=== PATIENT | male | born 1965 | race African-American/Black ===

== ENCOUNTER 2016-07-17 20:21 | Inpatient (IN) | payer BC ==
[~2016-07-17] VITALS: Ht 172.7 cm; Wt 75.5 kg
[~2016-07-17 20:21] MED LIST: IBUP-1542 PO
[2016-07-17] MEDS ORDERED: ONDANSETRON 4 MG INJ IV STA (23:17)
[2016-07-17] MEDS ORDERED: morphine 4 MG/ML VIAL IV STA (23:17)
[2016-07-18 00:03] LABS: ADD UMIC NO; URINE BILIRUBIN (Dip) NEGATIVE (NEGATIVE); URINE BLOOD (Dip) NEGATIVE (NEGATIVE); URINE COLOR LT. YELLOW (YELLOW); URINE GLUCOSE (Dip) NEGATIVE (NEGATIVE); URINE KETONES (Dip) NEGATIVE (NEGATIVE); URINE LEUKOCYTE ESTERASE (Dip) NEGATIVE (NEGATIVE); URINE NITRITE (Dip) NEGATIVE (NEGATIVE); URINE TOTAL PROTEIN (Dip) NEGATIVE (NEGATIVE); URINE UROBILINOGEN (Dip) 1.0 E.U./dL (0.1-1.0)
[2016-07-18 00:11] LABS: ALBUMIN 4.1 g/dl (3.3-4.9)
[2016-07-18 00:12] LABS: POTASSIUM 4.1 mmol/L (3.5-5.1)
[2016-07-18 00:14] LABS: ALBUMIN/GLOBULIN RATIO 1.24; BILIRUBIN,INDIRECT 0.4 mg/dl (0-1.1); BILIRUBIN,TOTAL 0.4 mg/dl (0.2-1.3); CREATININE 0.98 mg/dl (0.61-1.24); TOTAL PROTEIN 7.4 g/dl (6.1-8.1)
[2016-07-18 00:15] LABS: CALCIUM 9.3 mg/dl (8.4-10.2)
[2016-07-18 00:23] LABS: BASOPHILS % 0.4 % (0.0-2.0); CONDITION 1; EOSINOPHILS % 0.4 % (0.0-7.0); HEMATOCRIT 37.9 % (42.0-52.0); HEMOGLOBIN 12.7 g/dl (14.0-18.0); LYMPHOCYTES # 1.9 10^3/ul (0.8-2.9); LYMPHOCYTES % 17.4 % (15.0-51.0); MEAN CORPUSCULAR HEMOGLOBIN 29.3 pg (29.0-33.0); MEAN CORPUSCULAR HGB CONC 33.6 g/dl (32.0-37.0); MEAN CORPUSCULAR VOLUME 87.3 fl (82.0-101.0); MEAN PLATELET VOLUME 7.6 fl (7.4-10.4); MONOCYTE # 1.2 10^3/ul (0.3-0.9); MONOCYTES % 10.8 % (0.0-11.0); NEUTROPHIL # 7.9 10^3/ul (1.6-7.5); PLATELET COUNT 363 10^3/UL (140-440); RED BLOOD COUNT 4.34 10^6/ul (4.70-6.10); RED CELL DISTRIBUTION WIDTH 13.9 % (11.5-14.5); UNCORRECTED WBC 11.1 10^3/ul (4.8-10.8); WHITE BLOOD COUNT 11.1 10^3/ul (4.8-10.8)
--- NOTE | 2016-07-18 00:33 | ERD ---
ER Documentation Chief Complaint Date/Time DATE: 07/18/16 TIME: 00:32 Chief Complaint RLQ abd pain x 1 week HPI This is a 50-year-old male presents to the ER with right lower quadrant pain for the last week. Patient states that right lower quadrant pain radiates to his right flank and it has been severe and constant. Patient denies any fevers or chills. He denies any nausea vomiting or diarrhea. Patient did not travel out of the country. ROS 12 point review of systems was done, all negative except per HPI. Medications Home Meds Active Scripts Ibuprofen* (Motrin*) 600 Mg Tab, 600 MG PO Q8 Y for PAIN AND/OR INFLAMMATION, # 30 TAB Prov:AQUILINO DEUTSCH MD 03/17/16 Allergies Allergies: Coded Allergies: No Known Allergy (Unverified , 03/17/16) PMhx/Soc History of Surgery: No Anesthesia Reaction: No Hx Neurological Disorder: No Hx Respiratory Disorders: No Hx Cardiac Disorders: No Hx Psychiatric Problems: No Hx Miscellaneous Medical Probl: No Hx Alcohol Use: Yes Hx Substance Use: No Hx Tobacco Use: No Smoking Status: Light tobacco smoker Physical Exam Vitals Vital Signs Date Time Temp Pulse Resp B/P Pulse Ox O2 Delivery O2 Flow Rate FiO2 07/17/16 20:32 97.8 85 20 139/65 100 Physical Exam GENERAL: The patient is well developed and appropriate for usual state of health , in no apparent distress. HEENT: Atraumatic. CHEST: Clear to auscultation bilaterally. There are no rales, wheezes or rhonchi. HEART: Regular rate and rhythm. No murmurs, clicks, rubs or gallops. ABDOMEN: Soft and nondistended. Good bowel sounds. No rebound or guarding. No gross peritonitis. No gross organomegaly or masses. No Christianson sign + McBurney point tenderness. BACK: No midline or flank tenderness. EXTREMITIES: Full range of motion. Grossly neurovascularly intact. NEURO: Alert and oriented. Result Diagram: 07/17/16 2342 07/17/16 2342 Results 24 hrs Laboratory Tests Test 07/17/16 23:40 07/17/16 23:42 Urine Bilirubin NEGATIVE Urine Clarity CLEAR Urine Color LT. YELLOW Urine Glucose NEGATIVE% Urine Hemoglobin NEGATIVE Urine Ketones NEGATIVE Urine Leukocyte Esterase NEGATIVE Urine Nitrite NEGATIVE Urine Specific [place] 1.015 Urine Total Protein NEGATIVE Urine Urobilinogen 1.0 E.U./dL Urine pH 7.5 Alanine Aminotransferase (ALT/SGPT) 27IU/L Albumin 4.1g/dl Albumin/Globulin Ratio 1.24 Alkaline Phosphatase 77IU/L Anion Gap 19 Aspartate Amino Transf (AST/SGOT) 15IU/L Basophils # 0.010^3/ul Basophils % 0.4% Blood Urea Nitrogen 19mg/dl Calcium Level 9.3mg/dl Carbon Dioxide Level 27mmol/L Chloride Level 102mmol/L Creatinine 0.98mg/dl Direct Bilirubin 0.00mg/dl Eosinophils # 0.010^3/ul Eosinophils % 0.4% Globulin 3.30g/dl Glucose Level 102mg/dl Hematocrit 37.9% Hemoglobin 12.7g/dl Indirect Bilirubin 0.4mg/dl Lipase 52U/L Lymphocytes # 1.910^3/ul Lymphocytes % 17.4% Mean Corpuscular Hemoglobin 29.3pg Mean Corpuscular Hemoglobin Concent 33.6g/dl Mean Corpuscular Volume 87.3fl Mean Platelet Volume 7.6fl Monocytes # 1.210^3/ul Monocytes % 10.8% Neutrophils # 7.910^3/ul Neutrophils % 71.0% Nucleated Red Blood Cells # 0.010^3/ul Nucleated Red Blood Cells % 0.0/100WBC Platelet Count 88407^3/UL Potassium Level 4.1mmol/L Red Blood Count 4.3410^6/ul Red Cell Distribution Width 13.9% Sodium Level 144mmol/L Total Bilirubin 0.4mg/dl Total Protein 7.4g/dl White Blood Count 11.110^3/ul Current Medications Medications (Trade) Dose Ordered Sig/Xenia Route PRN Reason Start Time Stop Time Status Last Admin Dose Admin Morphine Sulfate (morphine) 6 mg ONCE STAT IV 07/17/16 23:17 07/17/16 23:19 DC 07/17/16 23:40 Ondansetron HCl (Zofran Inj) 4 mg ONCE STAT IV 07/17/16 23:17 07/17/16 23:19 DC 07/17/16 23:40 Procedures/MDM This is a 50-year-old male presents to the ER with right lower quadrant pain. Patient does have a perforated appendix. Patient will be admitted for further management and care. Departure Diagnosis: Primary Impression: Appendicitis Condition: Stable QUIN HAWKINS Jul 18, 2016 00:33
--- NOTE | 2016-07-18 00:55 | RADRPT ---
PROCEDURE: CT Abdomen and pelvis without contrast. CLINICAL INDICATION: Abdominal pain. TECHNIQUE: CT scan of the abdomen and pelvis was performed on the [employer] 6 4 slice VCT scanner. Contiguous axial images using 2.5 mm slice thickness were obtained from the jane ng bases to the ischial tuberosities without intravenous contrast. Coronal and sagittal reformatted images were also obtained. Images were reviewed on the PACS workstation. Exam CTD/vol = 6.80 mGy. Total exam DLP = 414.71 mGy-cm. COMPARISON: None. FINDINGS: Evaluation of the lung bases demonstrates no pleural or parenchymal disease. Abdomen: The liver is normal in size. There is no focal mass or dilatation of the biliary tree. T he gallbladder is not distended. The spleen, pancreas and bilateral adrenal glands are within susan l limits. Bilateral kidneys are normal in size with no contour deforming mass identified. There is no radiopaque renal or ureteral calculus identified. There is no hydronephrosis or hydroureter. T here is no retroperitoneal adenopathy. The abdominal aorta is of normal caliber with scattered athe rosclerotic calcifications. There are phlegmonous changes with stranding and increased soft tissue inferior to the cecum. The a ppendix is not visualized. There is no bowel obstruction or free air. There is no diverticulosis or diverticulitis. There are small mesenteric lymph nodes. There is no ascites. Pelvis: The bladder is unremarkable. The prostate and seminal vesicles are within normal limits. There is no significant pelvic adenopathy or free fluid. Evaluation of the osseous structures demonstrates no suspicious lytic or blastic lesion. IMPRESSION: Phlegmonous changes with stranding and increased soft tissue inferior to the cecum suspicious for pe rforated appendicitis. Mild vascular calcifications reflective of atherosclerosis. A call report was made to Chanel Siu at 12:54 a.m. .Mike Gonzales MD, MD Date Time Electronically viewed and signed by .Mike Gonzales MD, MD on 07/18/2016 00:54 .T/
[2016-07-18] MEDS ORDERED: PIPER-TAZO 3.375 GM IV (PMX) 100 ML IVPB ONE (01:00)
[2016-07-18] MEDS ORDERED: SOD CHLORIDE 0.9% 1,000 ML IV ONE (01:00)
[2016-07-18 01:08] LABS: INR 0.98
[2016-07-18 01:09] LABS: PARTIAL THROMBOPLASTIN TIME 28.7 Sec (25.0-35.0)
[2016-07-18] MEDS ORDERED: SOD CHLORIDE 0.9% 1,000 ML IV SCH (01:21)
--- NOTE | 2016-07-18 01:24 | EN ---
Date/Time of Note Date/Time of Note DATE: 07/18/16 TIME: 01:23 ER Progress Note I was called to evaluate a patient in fast track. This patient is a 50-year- old male who presents with 1 week of abdominal pain. This patient had a CAT scan done which does show ruptured appendicitis. I have admitted this patient to the [facility] floor as he has no signs of sepsis. The patient will be admitted under the care of Dr. Whipple. I have spoken to on-call general surgeon, Dr. Ramachandran who is in agreement with the plan of care for admission and IV antibiotics at this time. EARLINE FREEDMAN DO Jul 18, 2016 01:24
[2016-07-18] MEDS ORDERED: ONDANSETRON 4 MG INJ IV PRN ×2 (01:30→02:30)
[2016-07-18] MEDS ORDERED: ACETAMINOPHEN 325 MG TAB PO PRN ×2 (01:30→02:30)
--- NOTE | 2016-07-18 02:06 | RADRPT ---
PROCEDURE: XR Chest. CLINICAL INDICATION: Abdominal pain TECHNIQUE: Portable single view of the chest COMPARISON: None. FINDINGS: The cardiomediastinal silhouette appears within normal limits. The lungs are clear and no pleural e ffusion or significant edema is seen. No bony abnormality is seen. IMPRESSION: No definite acute pulmonary disease. RPTAT: HLBE Nora Peters Physician Date Time Electronically viewed and signed by Nora Peters Physician on 07/18/2016 02:06 LE/
--- NOTE | 2016-07-18 02:09 | HP ---
Date/Time of Note Date/Time of Note DATE: 07/18/16 TIME: 02:04 Assessment/Plan VTE Prophylaxis VTE Prophylaxis Intervention: SCD's Assessment/Plan Assessment/Plan 50 yo M with 1. Acute appendicitis with Ct concerning for perforation admit / surgical consult with Dr Ramachandran / abx/ pain control/ antiemetics/ antipyretics/ supportive care Prophylaxis: scds/ambulation Further evaluation and treatment will be based on clinical course Full discussion with care team done. All questions Answered Please also see orders. Total time spent on this evaluation >35mins HPI/ROS Admit Date/Time Admit Date/Time 07/18/16 Hx of Present Illness PRESENTING COMPLAINT: abd pain HISTORY OF PRESENTING COMPLAINT: 50 yo M with no sig PMH who presents with abd pain in RLQ described as sharp and radiating to back and suprapubic area, with nausea but no vomiting, no fever. No CP, SOB dysuria or hematuria. no hx of similar. relived by ER meds. ROS 12 point review if systems was done and pertinent findings are as noted. PMH/Family/Social Past Medical History Medical History: no pertinent history Past Surgical History Past Surgical Hx: no surgical history Family History Significant Family History: no pertinent family hx Social History Alcohol Use: occasionally Smoking Status: Never smoker Drug Use: none Exam/Review of Systems Vital Signs Vitals Vital Signs Date Time Temp Pulse Resp B/P Pulse Ox O2 Delivery O2 Flow Rate FiO2 07/18/16 01:26 99.2 84 14 131/70 98 Room Air Intake and Output 07/17/16 07/17/16 07/18/16 15:00 23:00 07:00 Intake Total 100 ml Balance 100 ml Exam Constitutional: alert, oriented Psych: nl mood/affect Head: atraumatic, normocephalic Eyes: PERRL, No icteric Neck: non-tender, supple Respiratory: clear to auscultation, normal air movement Cardiovascular: regular rate and rhythm Gastrointestinal: bowel sounds, tender (RLQ), No ascites Genitourinary - Male: other (deffered) Musculoskeletal: nl extremities to inspection Extremities: No edema Neurological: nl mental status, nl speech, nl strength Labs Result Diagram: 07/17/16 2342 07/17/16 2342 Medications Medications Current Medications Sodium Chloride (NS) 1,000 ml @ 80 mls/hr [id number] IV ; Start 07/18/16 at 01:21 ; Stop 07/18/16 at 13:50 Procedures Procedures Laboratory Tests Test 07/17/16 23:40 07/17/16 23:42 Urine Bilirubin NEGATIVE Urine Clarity CLEAR Urine Color LT. YELLOW Urine Glucose NEGATIVE% Urine Hemoglobin NEGATIVE Urine Ketones NEGATIVE Urine Leukocyte Esterase NEGATIVE Urine Nitrite NEGATIVE Urine Specific [place] 1.015 Urine Total Protein NEGATIVE Urine Urobilinogen 1.0 E.U./dL Urine pH 7.5 Activated Partial Thromboplast Time 28.7Sec Alanine Aminotransferase (ALT/SGPT) 27IU/L Albumin 4.1g/dl Albumin/Globulin Ratio 1.24 Alkaline Phosphatase 77IU/L Anion Gap 19 Aspartate Amino Transf (AST/SGOT) 15IU/L Basophils # 0.010^3/ul Basophils % 0.4% Blood Urea Nitrogen 19mg/dl Calcium Level 9.3mg/dl Carbon Dioxide Level 27mmol/L Chloride Level 102mmol/L Creatinine 0.98mg/dl Direct Bilirubin 0.00mg/dl Eosinophils # 0.010^3/ul Eosinophils % 0.4% Globulin 3.30g/dl Glucose Level 102mg/dl Hematocrit 37.9% Hemoglobin 12.7g/dl INR International Normalized Ratio 0.98 Indirect Bilirubin 0.4mg/dl Lipase 52U/L Lymphocytes # 1.910^3/ul Lymphocytes % 17.4% Mean Corpuscular Hemoglobin 29.3pg Mean Corpuscular Hemoglobin Concent 33.6g/dl Mean Corpuscular Volume 87.3fl Mean Platelet Volume 7.6fl Monocytes # 1.210^3/ul Monocytes % 10.8% Neutrophils # 7.910^3/ul Neutrophils % 71.0% Nucleated Red Blood Cells # 0.010^3/ul Nucleated Red Blood Cells % 0.0/100WBC Platelet Count 71026^3/UL Potassium Level 4.1mmol/L Prothrombin Time 13.0Sec Prothrombin Time Ratio 1.0 Red Blood Count 4.3410^6/ul Red Cell Distribution Width 13.9% Sodium Level 144mmol/L Total Bilirubin 0.4mg/dl Total Protein 7.4g/dl White Blood Count 11.110^3/ul ER INTERVENTIONS Medications (Trade) Dose Ordered Sig/Xenia Route PRN Reason Start Time Stop Time Status Last Admin Dose Admin Morphine Sulfate (morphine) 6 mg ONCE STAT IV 07/17/16 23:17 07/17/16 23:19 DC 07/17/16 23:40 6 MG Ondansetron HCl 4 mg 4 mg ONCE STAT IV 07/17/16 23:17 07/17/16 23:19 DC 07/17/16 23:40 4 MG Sodium Chloride 1,000 ml @ 1,000 mls/hr Q1H ONCE IV 07/18/16 01:00 07/18/16 01:59 DC 07/18/16 01:14 1,000 MLS/HR Piperacillin Sod/ Tazobactam Sod 100 ml @ 200 mls/hr ONCE ONCE IVPB 07/18/16 01:00 07/18/16 01:29 DC 07/18/16 01:14 200 MLS/HR Sodium Chloride (NS) 1,000 ml @ 80 mls/hr [id number] IV 07/18/16 01:21 07/18/16 13:50 Ondansetron HCl (Zofran Inj) 4 mg BRIDGE ORDER PRN IV NAUSEA AND/OR VOMITING 07/18/16 01:30 07/19/16 01:29 Acetaminophen (Tylenol Tab) 650 mg ER BRIDGE PRN PO MILD PAIN/FEVER 07/18/16 01:30 07/19/16 01:29 PROCEDURE: CT Abdomen and pelvis without contrast. 07/17/16 CLINICAL INDICATION: Abdominal pain. TECHNIQUE: CT scan of the abdomen and pelvis was performed on the [employer] 64 slice VCT scanner. Contiguous axial images using 2.5 mm slice thickness were obtained from the lung bases to the ischial tuberosities without intravenous contrast. Coronal and sagittal reformatted images were also obtained. Images were reviewed on the PACS workstation. Exam CTD/vol = 6.80 mGy. Total exam DLP = 414.71 mGy-cm. COMPARISON: None. FINDINGS: Evaluation of the lung bases demonstrates no pleural or parenchymal disease. Abdomen: The liver is normal in size. There is no focal mass or dilatation of the biliary tree. The gallbladder is not distended. The spleen, pancreas and bilateral adrenal glands are within normal limits. Bilateral kidneys are normal in size with no contour deforming mass identified. There is no radiopaque renal or ureteral calculus identified. There is no hydronephrosis or hydroureter. There is no retroperitoneal adenopathy. The abdominal aorta is of normal caliber with scattered atherosclerotic calcifications. There are phlegmonous changes with stranding and increased soft tissue inferior to the cecum. The appendix is not visualized. There is no bowel obstruction or free air. There is no diverticulosis or diverticulitis. There are small mesenteric lymph nodes. There is no ascites. Pelvis: The bladder is unremarkable. The prostate and seminal vesicles are within normal limits. There is no significant pelvic adenopathy or free fluid. Evaluation of the osseous structures demonstrates no suspicious lytic or blastic lesion. IMPRESSION: Phlegmonous changes with stranding and increased soft tissue inferior to the cecum suspicious for perforated appendicitis. Mild vascular calcifications reflective of atherosclerosis. SUMANTH AMAYA Jul 18, 2016 02:09
[2016-07-18 03:22] VITALS: TEMP 99
[2016-07-18] MEDS: SOD CHLORIDE 0.9% 1,000 ML IV SCH ×3 (04:19→16:06)
[2016-07-18 04:30] VITALS: BP 130/78; PULSE 63; RESP 18
[2016-07-18 04:40] VITALS: Ht 172.7 cm; Wt 75.5 kg
[2016-07-18 06:04] LABS: BASOPHILS % 0.4 % (0.0-2.0); EOSINOPHILS # 0.1 10^3/ul (0.0-0.5); EOSINOPHILS % 0.6 % (0.0-7.0); HEMOGLOBIN 11.4 g/dl (14.0-18.0); LYMPHOCYTES # 1.6 10^3/ul (0.8-2.9); LYMPHOCYTES % 18.2 % (15.0-51.0); MEAN CORPUSCULAR HEMOGLOBIN 29.4 pg (29.0-33.0); MEAN CORPUSCULAR HGB CONC 33.4 g/dl (32.0-37.0); MEAN CORPUSCULAR VOLUME 88.2 fl (82.0-101.0); MEAN PLATELET VOLUME 7.4 fl (7.4-10.4); MONOCYTE # 1.1 10^3/ul (0.3-0.9); MONOCYTES % 11.7 % (0.0-11.0); NEUTROPHIL # 6.2 10^3/ul (1.6-7.5); NEUTROPHILS % 69.1 % (39.0-77.0); PLATELET COUNT 305 10^3/UL (140-440); RED BLOOD COUNT 3.85 10^6/ul (4.70-6.10); RED CELL DISTRIBUTION WIDTH 13.8 % (11.5-14.5)
[2016-07-18 06:21] LABS: CALCIUM 8.6 mg/dl (8.4-10.2); CREATININE 0.93 mg/dl (0.61-1.24)
[2016-07-18 06:28] LABS: CONDITION 1
[2016-07-18] MEDS: PIPER-TAZO 3.375 GM IV (PMX) 100 ML IVPB SCH ×3 (06:29→22:12)
[2016-07-18 07:56] VITALS: BP 105/63; PULSE 59; RESP 16
[2016-07-18] MEDS: FAMOTIDINE 20 MG TAB PO SCH ×2 (08:42→20:41)
[2016-07-18] MEDS: DOCUSATE SODIUM 100 MG CAP PO SCH ×2 (08:43→20:41)
--- NOTE | 2016-07-18 18:03 | CONS ---
Date/Time of Note Date/Time of Note DATE: 07/18/16 TIME: 17:57 Assessment/Plan Assessment/Plan Chief Complaint/Hosp Course 1. Abdominal pain with leukocytosis and CT diagnosis of appendicitis with phlegmon -Nothing by mouth -IV fluids -IV antibiotics -No surgical intervention at this time. Plan is to continue antibiotics and discharged patient to follow-up as outpatient for elective upper scopic appendectomy in the future. 2. Anemia without evidence of acute bleeding -Will need eventual GI workup 3. Smoker, pack per day -Highly encouraged to reduce or stop smoking to improve his overall health status Thank you very much for consulting me in this patient's care, Problems: Consultation Date/Type/Reason Admit Date/Time 07/18/16 Date of Consultation: Jul 18, 2016 Type of Consultation: Gen. surgical Reason for Consultation Abdominal pain Perforated appendicitis with phlegmon Leukocytosis Anemia Referring Provider: EARLINE FREEDMAN DO Hx of Present Illness Alvin Arauz is a 50-year-old male who presents with 2 weeks of right lower quadrant abdominal pain that got worse associated with nausea but no vomiting. Pain radiates to the back and suprapubic region. No previous history of this. No dysuria. Had diarrhea last week. No fevers or chills. No chest pain or shortness of breath. No visual or neurologic changes. No trauma or sick contacts. In the emergency room his found to have leukocytosis and CT diagnosis of appendicitis with phlegmon suggestive of perforation. He is admitted and placed on antibiotics. Surgical consult is obtained further evaluation and treatment. 12 point review of systems negative unless address in history of present illness Psychological: nl mood/affect Past Medical History Anemia Abdominal pain 2 weeks Leukocytosis Perforated appendicitis with phlegmon Past Surgical History Right wrist tendon repair secondary to trauma Family History Significant Family History: no pertinent family hx Social History Works for [employer] and [employer] Alcohol Use: rarely (once every month or 2) Smoking Status: Current every day smoker (pack per day) Drug Use: none Exam/Review of Systems Vital Signs Vitals Vital Signs Date Time Temp Pulse Resp B/P Pulse Ox O2 Delivery O2 Flow Rate FiO2 07/18/16 07:56 98.1 59 16 105/63 98 Room Air Intake and Output 07/17/16 07/17/16 07/18/16 15:00 23:00 07:00 Intake Total 2100 ml Balance 2100 ml Exam Constitutional: alert, oriented, No distress Psych: nl mood/affect, No anxiety Head: atraumatic, normocephalic Eyes: EOMI, PERRL, nl conjunctiva, No icteric ENMT: mucosa pink and moist, nl external ears & nose, nl lips & teeth Neck: non-tender, supple, No jvd Respiratory: normal air movement, No congested cough, No labored breathing Cardiovascular: regular rate and rhythm, No edema Gastrointestinal: soft, tender (right lower quadrant only), No distended, No rebound or guarding Genitourinary - Male: nl penis, nl scrotum Musculoskeletal: nl extremities to inspection, nl gait and stance, No joint tenderness Extremities: normal pulses, No calf tenderness, No cyanosis Neurological: nl mental status, nl speech, nl strength Skin: nl turgor, No diaphoresis, No rash or lesions Lymph: nl lymph nodes Results Result Diagram: 07/18/16 0523 07/18/16 0523 Results 24 hrs Laboratory Tests Test 07/17/16 23:40 07/17/16 23:42 07/18/16 05:23 Urine Bilirubin NEGATIVE Urine Clarity CLEAR Urine Color LT. YELLOW Urine Glucose NEGATIVE Urine Hemoglobin NEGATIVE Urine Ketones NEGATIVE Urine Leukocyte Esterase NEGATIVE Urine Nitrite NEGATIVE Urine Specific [place] 1.015 Urine Total Protein NEGATIVE Urine Urobilinogen 1.0 E.U./dL Urine pH 7.5 Activated Partial Thromboplast Time 28.7 Alanine Aminotransferase (ALT/SGPT) 27 Albumin 4.1 Albumin/Globulin Ratio 1.24 Alkaline Phosphatase 77 Anion Gap 19 H 14 Aspartate Amino Transf (AST/SGOT) 15 Basophils # 0.0 0.0 Basophils % 0.4 0.4 Blood Urea Nitrogen 19 18 Calcium Level 9.3 8.6 Carbon Dioxide Level 27 27 Chloride Level 102 104 Creatinine 0.98 0.93 Direct Bilirubin 0.00 Eosinophils # 0.0 0.1 Eosinophils % 0.4 0.6 Globulin 3.30 H Glucose Level 102 88 Hematocrit 37.9 L 34.0 L Hemoglobin 12.7 L 11.4 L INR International Normalized Ratio 0.98 Indirect Bilirubin 0.4 Lipase 52 Lymphocytes # 1.9 1.6 Lymphocytes % 17.4 18.2 Mean Corpuscular Hemoglobin 29.3 29.4 Mean Corpuscular Hemoglobin Concent 33.6 33.4 Mean Corpuscular Volume 87.3 88.2 Mean Platelet Volume 7.6 7.4 Monocytes # 1.2 H 1.1 H Monocytes % 10.8 11.7 H Neutrophils # 7.9 H 6.2 Neutrophils % 71.0 69.1 Nucleated Red Blood Cells # 0.0 0.0 Nucleated Red Blood Cells % 0.0 0.0 Platelet Count 363 305 Potassium Level 4.1 4.0 Prothrombin Time 13.0 Prothrombin Time Ratio 1.0 Red Blood Count 4.34 L 3.85 L Red Cell Distribution Width 13.9 13.8 Sodium Level 144 141 Total Bilirubin 0.4 Total Protein 7.4 White Blood Count 11.1 H 9.0 Magnesium Level 2.0 Medications Medications Current Medications Piperacillin Sod/ Tazobactam Sod (Zosyn 3.375gm/ 100 ml (Pmx)) 100 ml @ 200 mls /hr Q8 IVPB Last administered on 07/18/16at 13:36; Admin Dose 200 MLS/HR; Start 07/18/16 at 07:30 Ondansetron HCl 4 mg 4 mg Q6H PRN IV NAUSEA AND/OR VOMITING; Start 07/18/16 at 02:30 Sodium Chloride (NS) 1,000 ml @ 125 mls/hr Q8H IV Last administered on at 16:06; Admin Dose 125 MLS/HR; Start 07/18/16 at 02:30 Famotidine (Pepcid) 20 mg BID PO Last administered on 07/18/16at 08:42; Admin Dose 20 MG; Start 07/18/16 at 09:00 Docusate Sodium (Colace) 100 mg BID PO Last administered on 07/18/16at 08:43; Admin Dose 100 MG; Start 07/18/16 at 09:00 Acetaminophen (Tylenol Tab) 650 mg Q6H PRN PO PAIN AND OR ELEVATED TEMP; Start 07/18/16 at 02:30 Influenza Virus Vaccine (Fluzone) 0.5 ml ONCE ONCE IM* ; Start 07/21/16 at 09:00 ; Stop 07/21/16 at 09:01 BRUCE JUDGE MD Jul 18, 2016 18:03
[2016-07-18 20:00] VITALS: BP 124/63; PULSE 65; RESP 18
[2016-07-19] MEDS: SOD CHLORIDE 0.9% 1,000 ML IV SCH ×2 (00:46→09:28)
[2016-07-19] MEDS: PIPER-TAZO 3.375 GM IV (PMX) 100 ML IVPB SCH ×3 (05:41→22:29)
[2016-07-19 06:21] LABS: BASOPHILS % 0.4 % (0.0-2.0); EOSINOPHILS # 0.1 10^3/ul (0.0-0.5); EOSINOPHILS % 0.7 % (0.0-7.0); HEMATOCRIT 36.3 % (42.0-52.0); HEMOGLOBIN 12.1 g/dl (14.0-18.0); LYMPHOCYTES # 1.7 10^3/ul (0.8-2.9); MEAN CORPUSCULAR HEMOGLOBIN 29.4 pg (29.0-33.0); MEAN CORPUSCULAR HGB CONC 33.2 g/dl (32.0-37.0); MEAN CORPUSCULAR VOLUME 88.7 fl (82.0-101.0); MEAN PLATELET VOLUME 7.8 fl (7.4-10.4); MONOCYTE # 0.7 10^3/ul (0.3-0.9); MONOCYTES % 8.9 % (0.0-11.0); NEUTROPHIL # 5.7 10^3/ul (1.6-7.5); PLATELET COUNT 338 10^3/UL (140-440); RED BLOOD COUNT 4.09 10^6/ul (4.70-6.10); RED CELL DISTRIBUTION WIDTH 13.8 % (11.5-14.5); UNCORRECTED WBC 8.3 10^3/ul (4.8-10.8); WHITE BLOOD COUNT 8.3 10^3/ul (4.8-10.8)
[2016-07-19 06:24] LABS: CONDITION 1
[2016-07-19 06:50] LABS: POTASSIUM 4.1 mmol/L (3.5-5.1)
[2016-07-19 06:52] LABS: CREATININE 0.89 mg/dl (0.61-1.24)
[2016-07-19 07:30] VITALS: BP 126/60; PULSE 76; RESP 18
[2016-07-19] MEDS: FAMOTIDINE 20 MG TAB PO SCH ×2 (09:28→21:20)
[2016-07-19] MEDS: DOCUSATE SODIUM 100 MG CAP PO SCH ×2 (09:28→21:20)
[2016-07-19] MEDS: DEXTROSE 5%-0.45% NACL 1,000 ML IV SCH (10:31)
--- NOTE | 2016-07-19 11:14 | PN ---
Date/Time of Note Date/Time of Note DATE: 07/19/16 TIME: 11:12 Assessment/Plan VTE Prophylaxis VTE Prophylaxis Intervention: SCD's Lines/Catheters IV Catheter Type (from Nrsg): Peripheral IV Assessment/Plan Assessment/Plan 50 yo M with 1. Acute appendicitis with Ct concerning for perforation - continue with IV antibiotics, f/u surgery recs, monitor for acute changes. Prophylaxis: scds/ambulation dispo - f/u recs, as per clinical course. this progress note took greater than 40 minutes to complete Subjective 24 Hr Interval Summary Free Text/Dictation Patient admitted yesterday with perforated appendicitis. At this time the pain has improved. Spoke to him about the care plan. 15 minutes spent. Exam/Review of Systems Vital Signs Vitals Vital Signs Date Time Temp Pulse Resp B/P Pulse Ox O2 Delivery O2 Flow Rate FiO2 07/19/16 07:30 97.8 76 18 126/60 98 Room Air Intake and Output 07/18/16 07/18/16 07/19/16 15:00 23:00 07:00 Intake Total 100 ml 1850 ml 862 ml Balance 100 ml 1850 ml 862 ml Exam Gen Giulia: mild distress 2/2 abdominal pain, AAOx4 HEENT: NC/AT, PERRLA, EOMI, no pharyngeal erythema, no tonsillar exudates, no lymphadenopathy, no JVD, no carotid bruits NECK: supple, no thyromegaly THORAX: symmetrical, no obvious deformities CV: S1S2, RRR, no M/G/R Lungs: CTAB no W/C/R/R Abd: soft, ND, +BS, no rebound, no guarding, neg HSM, tenderness to deep palpation right lower quadrant EXT: no edema, no ecchymosis, no clubbing, FROM Neuro: CN II-XII grossly intact, no focal deficits Psych: good mentation, alert and oriented, good mood and affect Skin: C/D/I Results Result Diagram: 07/19/16 0500 07/19/16 0500 Results 24 hrs Laboratory Tests Test 07/19/16 05:00 Anion Gap 17 H Basophils # 0.0 Basophils % 0.4 Blood Urea Nitrogen 15 Calcium Level 9.0 Carbon Dioxide Level 23 Chloride Level 107 Creatinine 0.89 Eosinophils # 0.1 Eosinophils % 0.7 Glucose Level 67 #L Hematocrit 36.3 L Hemoglobin 12.1 L Lymphocytes # 1.7 Lymphocytes % 21.0 Mean Corpuscular Hemoglobin 29.4 Mean Corpuscular Hemoglobin Concent 33.2 Mean Corpuscular Volume 88.7 Mean Platelet Volume 7.8 Monocytes # 0.7 Monocytes % 8.9 Neutrophils # 5.7 Neutrophils % 69.0 Nucleated Red Blood Cells # 0.0 Nucleated Red Blood Cells % 0.0 Platelet Count 338 Potassium Level 4.1 Red Blood Count 4.09 L Red Cell Distribution Width 13.8 Sodium Level 143 White Blood Count 8.3 Medications Medications Current Medications Piperacillin Sod/ Tazobactam Sod (Zosyn 3.375gm/ 100 ml (Pmx)) 100 ml @ 200 mls /hr Q8 IVPB Last administered on 07/19/16at 05:41; Admin Dose 200 MLS/HR; Start 07/18/16 at 07:30 Ondansetron HCl (Zofran Inj) 4 mg Q6H PRN IV NAUSEA AND/OR VOMITING; Start at 02:30 Famotidine (Pepcid) 20 mg BID PO Last administered on 07/19/16at 09:28; Admin Dose 20 MG; Start 07/18/16 at 09:00 Docusate Sodium (Colace) 100 mg BID PO Last administered on 07/19/16at 09:28; Admin Dose 100 MG; Start 07/18/16 at 09:00 Acetaminophen (Tylenol Tab) 650 mg Q6H PRN PO PAIN AND OR ELEVATED TEMP; Start 07/18/16 at 02:30 Influenza Virus Vaccine 0.5 ml 0.5 ml ONCE ONCE IM* ; Start 07/21/16 at 09:00; Stop 07/21/16 at 09:01 Dextrose/Sodium Chloride (D5-1/2ns) 1,000 ml @ 75 mls/hr [id number] IV Last administered on 07/19/16at 10:31; Admin Dose 75 MLS/HR; Start 07/19/16 at 10:30 PAIGE VAN MD Jul 19, 2016 11:14
--- NOTE | 2016-07-19 14:37 | PN ---
Date/Time of Note Date/Time of Note DATE: 07/19/16 TIME: 14:36 Assessment/Plan Lines/Catheters IV C[facility]ter Type (from [facility]): Peripheral IV Assessment/Plan Chief Complaint/Hosp Course 1. Abdominal pain with leukocytosis and CT diagnosis of appendicitis with phlegmon. Improving -Nothing by mouth -IV fluids -IV antibiotics -No surgical intervention at this time. Plan is to continue antibiotics and discharged patient to follow-up as outpatient for elective upper scopic appendectomy in the future. 2. Anemia without evidence of acute bleeding -Will need eventual GI workup 3. Smoker, pack per day -Highly encouraged to reduce or stop smoking to improve his overall health status Thank you, Problems: Exam/Review of Systems Vital Signs Vitals Vital Signs Date Time Temp Pulse Resp B/P Pulse Ox O2 Delivery O2 Flow Rate FiO2 07/19/16 07:30 97.8 76 18 126/60 98 Room Air Intake and Output 07/18/16 07/18/16 07/19/16 15:00 23:00 07:00 Intake Total 100 ml 1850 ml 862 ml Balance 100 ml 1850 ml 862 ml Exam Free Text/Dictation Constitutional: alert, oriented, No distress Psych: nl mood/affect, No anxiety Head: atraumatic, normocephalic Eyes: EOMI, PERRL, nl conjunctiva, No icteric ENMT: mucosa pink and moist, nl external ears & nose, nl lips & teeth Neck: non-tender, supple, No jvd Respiratory: normal air movement, No congested cough, No labored breathing Cardiovascular: regular rate and rhythm, No edema Gastrointestinal: soft, tender (right lower quadrant only), No distended, No rebound or guarding Genitourinary - Male: nl penis, nl scrotum Musculoskeletal: nl extremities to inspection, nl gait and stance, No joint tenderness Extremities: normal pulses, No calf tenderness, No cyanosis Neurological: nl mental status, nl speech, nl strength Skin: nl turgor, No diaphoresis, No rash or lesions Lymph: nl lymph nodes Results Result Diagram: 07/19/16 0500 07/19/16 0500 BRUCE JUDGE MD Jul 19, 2016 14:37
--- NOTE | 2016-07-19 15:59 | PN ---
Date/Time of Note Date/Time of Note DATE: 07/19/16 TIME: 15:56 Assessment/Plan Lines/Catheters IV Catheter Type (from [facility]): Peripheral IV Assessment/Plan Chief Complaint/Hosp Course 1. Abdominal pain with leukocytosis and CT diagnosis of appendicitis with phlegmon. Improving -Clears -IV fluids -IV antibiotics -No surgical intervention at this time. Plan is to continue antibiotics and discharged patient to follow-up as outpatient for elective upper scopic appendectomy in the future. 2. Anemia without evidence of acute bleeding -Will need eventual GI workup 3. Smoker, pack per day -Highly encouraged to reduce or stop smoking to improve his overall health status Thank you, Problems: Subjective 24 Hr Interval Summary No f/c/n/v. No pain. Flatus. No giles/dizziness/visual or neuro changes. No dysuria. No bloating. Exam/Review of Systems Vital Signs Vitals Vital Signs Date Time Temp Pulse Resp B/P Pulse Ox O2 Delivery O2 Flow Rate FiO2 07/19/16 07:30 97.8 76 18 126/60 98 Room Air Intake and Output 07/18/16 07/18/16 07/19/16 15:00 23:00 07:00 Intake Total 100 ml 1850 ml 862 ml Balance 100 ml 1850 ml 862 ml Exam Free Text/Dictation Constitutional: alert, oriented, No distress Psych: nl mood/affect, No anxiety Head: atraumatic, normocephalic Eyes: EOMI, PERRL, nl conjunctiva, No icteric ENMT: mucosa pink and moist, nl external ears & nose, nl lips & teeth Neck: non-tender, supple, No jvd Respiratory: normal air movement, No congested cough, No labored breathing Cardiovascular: regular rate and rhythm, No edema Gastrointestinal: soft, NT, No distended, No rebound or guarding Genitourinary - Male: nl penis, nl scrotum Musculoskeletal: nl extremities to inspection, nl gait and stance, No joint tenderness Extremities: normal pulses, No calf tenderness, No cyanosis Neurological: nl mental status, nl speech, nl strength Skin: nl turgor, No diaphoresis, No rash or lesions Lymph: nl lymph nodes Results Result Diagram: 07/19/16 0500 07/19/16 0500 BRUCE JUDGE MD Jul 19, 2016 15:59
[2016-07-19 20:00] VITALS: BP 126/69; PULSE 55; RESP 16
[2016-07-20] MEDS: DEXTROSE 5%-0.45% NACL 1,000 ML IV SCH ×3 (02:25→18:15)
[2016-07-20] MEDS: PIPER-TAZO 3.375 GM IV (PMX) 100 ML IVPB SCH ×3 (05:43→21:59)
[2016-07-20 07:03] LABS: BASOPHILS % 0.4 % (0.0-2.0); EOSINOPHILS # 0.1 10^3/ul (0.0-0.5); EOSINOPHILS % 1.2 % (0.0-7.0); HEMATOCRIT 34.3 % (42.0-52.0); HEMOGLOBIN 11.5 g/dl (14.0-18.0); LYMPHOCYTES # 1.2 10^3/ul (0.8-2.9); LYMPHOCYTES % 18.3 % (15.0-51.0); MEAN CORPUSCULAR HEMOGLOBIN 29.8 pg (29.0-33.0); MEAN CORPUSCULAR HGB CONC 33.6 g/dl (32.0-37.0); MEAN CORPUSCULAR VOLUME 88.8 fl (82.0-101.0); MEAN PLATELET VOLUME 7.7 fl (7.4-10.4); MONOCYTE # 0.7 10^3/ul (0.3-0.9); MONOCYTES % 10.2 % (0.0-11.0); NEUTROPHIL # 4.6 10^3/ul (1.6-7.5); NEUTROPHILS % 69.9 % (39.0-77.0); PLATELET COUNT 315 10^3/UL (140-440); RED BLOOD COUNT 3.86 10^6/ul (4.70-6.10); RED CELL DISTRIBUTION WIDTH 13.2 % (11.5-14.5); UNCORRECTED WBC 6.6 10^3/ul (4.8-10.8); WHITE BLOOD COUNT 6.6 10^3/ul (4.8-10.8)
[2016-07-20 07:16] LABS: POTASSIUM 4.2 mmol/L (3.5-5.1)
[2016-07-20 07:18] LABS: CREATININE 0.82 mg/dl (0.61-1.24)
[2016-07-20 07:22] LABS: CONDITION 1
[2016-07-20 07:56] VITALS: BP 132/76; RESP 20
[2016-07-20] MEDS: FAMOTIDINE 20 MG TAB PO SCH ×2 (08:45→20:10)
[2016-07-20] MEDS: DOCUSATE SODIUM 100 MG CAP PO SCH ×2 (08:45→20:10)
--- NOTE | 2016-07-20 11:03 | PN ---
Date/Time of Note Date/Time of Note DATE: 07/20/16 TIME: 11:01 Assessment/Plan VTE Prophylaxis VTE Prophylaxis Intervention: SCD's Lines/Catheters IV Catheter Type (from Nrsg): Saline Lock Assessment/Plan Assessment/Plan 50 yo M with 1. Acute appendicitis with Ct concerning for perforation - continue with IV antibiotics, f/u surgery recs, monitor for acute changes. - lap appy tomorrow? 2. Smoking abuse - patient counseled on cessation Prophylaxis: scds/ambulation dispo - f/u recs - poss lap appy tomorrow, as per clinical course. this progress note took greater than 30 minutes to complete Subjective 24 Hr Interval Summary Free Text/Dictation Patient is doing better today. Abdominal pain is minimal. No overnight fevers/ chills. Spoke to the patient about the care plan. 10 minutes spent. Exam/Review of Systems Vital Signs Vitals Vital Signs Date Time Temp Pulse Resp B/P Pulse Ox O2 Delivery O2 Flow Rate FiO2 07/20/16 07:56 98.1 54 20 132/76 100 07/19/16 20:00 Room Air Intake and Output 07/19/16 07/19/16 07/20/16 15:00 23:00 07:00 Intake Total 400 ml 1700 ml 340 ml Balance 400 ml 1700 ml 340 ml Exam Gen Giulia: mild distress 2/2 abdominal pain, AAOx4 HEENT: NC/AT, PERRLA, EOMI, no pharyngeal erythema, no tonsillar exudates, no lymphadenopathy, no JVD, no carotid bruits NECK: supple, no thyromegaly THORAX: symmetrical, no obvious deformities CV: S1S2, RRR, no M/G/R Lungs: CTAB no W/C/R/R Abd: soft, ND, +BS, no rebound, no guarding, neg HSM, tenderness to deep palpation right lower quadrant EXT: no edema, no ecchymosis, no clubbing, FROM Neuro: CN II-XII grossly intact, no focal deficits Psych: good mentation, alert and oriented, good mood and affect Skin: C/D/I Results Result Diagram: 07/20/16 0519 07/20/16 0520 Results 24 hrs Laboratory Tests Test 07/20/16 05:19 07/20/16 05:20 Basophils # 0.0 Basophils % 0.4 Eosinophils # 0.1 Eosinophils % 1.2 Hematocrit 34.3 L Hemoglobin 11.5 L Lymphocytes # 1.2 Lymphocytes % 18.3 Mean Corpuscular Hemoglobin 29.8 Mean Corpuscular Hemoglobin Concent 33.6 Mean Corpuscular Volume 88.8 Mean Platelet Volume 7.7 Monocytes # 0.7 Monocytes % 10.2 Neutrophils # 4.6 Neutrophils % 69.9 Nucleated Red Blood Cells # 0.0 Nucleated Red Blood Cells % 0.0 Platelet Count 315 Red Blood Count 3.86 L Red Cell Distribution Width 13.2 White Blood Count 6.6 # Anion Gap 14 Blood Urea Nitrogen 7 Calcium Level 9.0 Carbon Dioxide Level 29 Chloride Level 103 Creatinine 0.82 Glucose Level 92 Potassium Level 4.2 Sodium Level 142 Medications Medications Current Medications Piperacillin Sod/ Tazobactam Sod (Zosyn 3.375gm/ 100 ml (Pmx)) 100 ml @ 200 mls /hr Q8 IVPB Last administered on 07/20/16 05:43; Admin Dose 200 MLS/HR; Start 07/18/16 at 07:30 Ondansetron HCl (Zofran Inj) 4 mg Q6H PRN IV NAUSEA AND/OR VOMITING; Start at 02:30 Famotidine (Pepcid) 20 mg BID PO Last administered on 07/19/16at 21:20; Admin Dose 20 MG; Start 07/18/16 at 09:00 Docusate Sodium (Colace) 100 mg BID PO Last administered on 07/19/16at 21:20; Admin Dose 100 MG; Start 07/18/16 at 09:00 Acetaminophen (Tylenol Tab) 650 mg Q6H PRN PO PAIN AND OR ELEVATED TEMP; Start 07/18/16 at 02:30 Influenza Virus Vaccine 0.5 ml 0.5 ml ONCE ONCE IM* ; Start 07/21/16 at 09:00; Stop 07/21/16 at 09:01 Dextrose/Sodium Chloride (D5-1/2ns) 1,000 ml @ 75 mls/hr [id number] IV Last administered on 07/20/16 02:25; Admin Dose 75 MLS/HR; Start 07/19/16 at 10:30 PAIGE VAN MD Jul 20, 2016 11:03
--- NOTE | 2016-07-20 11:51 | PN ---
Date/Time of Note Date/Time of Note DATE: 07/20/16 TIME: 11:49 Assessment/Plan Lines/Catheters IV C[facility]ter Type (from [facility]): Saline Lock Assessment/Plan Chief Complaint/Hosp Course 1. Abdominal pain with leukocytosis and CT diagnosis of appendicitis with phlegmon. Improving -Diet as tolerated -IV fluids -IV antibiotics -No surgical intervention at this time. Plan is to continue antibiotics and discharged patient to follow-up as outpatient for elective laparoscopic appendectomy in 2-4 months 2. Anemia without evidence of acute bleeding -Will need eventual GI workup 3. Smoker, pack per day -Highly encouraged to reduce or stop smoking to improve his overall health status Thank you, Problems: Subjective 24 Hr Interval Summary No f/c/n/v. No pain. Flatus. No giles/dizziness/visual or neuro changes. No dysuria. No bloating. Exam/Review of Systems Vital Signs Vitals Vital Signs Date Time Temp Pulse Resp B/P Pulse Ox O2 Delivery O2 Flow Rate FiO2 07/20/16 07:56 98.1 54 20 132/76 100 07/19/16 20:00 Room Air Intake and Output 07/19/16 07/19/16 07/20/16 15:00 23:00 07:00 Intake Total 400 ml 1700 ml 340 ml Balance 400 ml 1700 ml 340 ml Exam Free Text/Dictation Constitutional: alert, oriented, No distress Psych: nl mood/affect, No anxiety Head: atraumatic, normocephalic Eyes: EOMI, PERRL, nl conjunctiva, No icteric ENMT: mucosa pink and moist, nl external ears & nose, nl lips & teeth Neck: non-tender, supple, No jvd Respiratory: normal air movement, No congested cough, No labored breathing Cardiovascular: regular rate and rhythm, No edema Gastrointestinal: soft, NT, No distended, No rebound or guarding Genitourinary - Male: nl penis, nl scrotum Musculoskeletal: nl extremities to inspection, nl gait and stance, No joint tenderness Extremities: normal pulses, No calf tenderness, No cyanosis Neurological: nl mental status, nl speech, nl strength Skin: nl turgor, No diaphoresis, No rash or lesions Lymph: nl lymph nodes Results Result Diagram: 07/20/16 0519 07/20/16 0520 BRUCE JUDGE MD Jul 20, 2016 11:51
[2016-07-20 19:43] VITALS: BP 124/71; RESP 20
[2016-07-21] MEDS: PIPER-TAZO 3.375 GM IV (PMX) 100 ML IVPB SCH ×3 (05:40→22:35)
[2016-07-21 07:45] VITALS: BP 117/67; RESP 20
[2016-07-21] MEDS ORDERED: INFLUENZA VIRUS VACCINE 0.5 ML SYG IM* ONE (09:00)
[2016-07-21] MEDS: FAMOTIDINE 20 MG TAB PO SCH ×2 (09:07→20:27)
[2016-07-21] MEDS: DOCUSATE SODIUM 100 MG CAP PO SCH ×2 (09:07→20:27)
[2016-07-21] MEDS: DEXTROSE 5%-0.45% NACL 1,000 ML IV SCH (09:10)
--- NOTE | 2016-07-21 12:48 | PN ---
Date/Time of Note Date/Time of Note DATE: 07/21/16 TIME: 12:46 Assessment/Plan VTE Prophylaxis VTE Prophylaxis Intervention: other Lines/Catheters IV Catheter Type (from Nrs): Peripheral IV Assessment/Plan Problems: (1) Appendicitis Status: Acute Comment: He is being watched in an observational fashion. He wishes to continue IV antibiotics which is reasonable but if everything goes well he can be discharged home tomorrow with follow-up for outpatient surgical intervention Qualifiers: Appendicitis type: acute appendicitis Acute appendicitis type: with localized peritonitis Qualified Code: K35.3 - Acute appendicitis with localized peritonitis (2) Tobacco abuse disorder Status: Chronic Comment: Strongly counseled Subjective 24 Hr Interval Summary Free Text/Dictation Patient reports improvement in pain is now 2 out of 10. He is ambulating and taking p.o. Constitutional: no complaints Respiratory: no complaints Cardiovascular: no complaints Gastrointestinal: pain Exam/Review of Systems Vital Signs Vitals Vital Signs Date Time Temp Pulse Resp B/P Pulse Ox O2 Delivery O2 Flow Rate FiO2 07/21/16 07:45 98.4 48 20 117/67 100 07/19/16 20:00 Room Air Intake and Output 07/20/16 07/20/16 07/21/16 15:00 23:00 07:00 Intake Total 100 ml 2630 ml 600 ml Balance 100 ml 2630 ml 600 ml Exam Constitutional: alert, oriented Neck: non-tender, supple Respiratory: clear to auscultation, normal air movement Cardiovascular: nl pulses, regular rate and rhythm Gastrointestinal: nl liver, spleen, soft, tender (RLQ non rebound) Results Result Diagram: 07/20/16 0519 07/20/16 0520 Medications Medications Current Medications Piperacillin Sod/ Tazobactam Sod (Zosyn 3.375gm/ 100 ml (Pmx)) 100 ml @ 200 mls /hr Q8 IVPB Last administered on 07/21/16 05:40; Admin Dose 200 MLS/HR; Start 07/18/16 at 07:30 Ondansetron HCl (Zofran Inj) 4 mg Q6H PRN IV NAUSEA AND/OR VOMITING; Start at 02:30 Famotidine (Pepcid) 20 mg BID PO Last administered on 07/21/16 09:07; Admin Dose 20 MG; Start 07/18/16 at 09:00 Docusate Sodium (Colace) 100 mg BID PO Last administered on 07/21/16 09:07; Admin Dose 100 MG; Start 07/18/16 at 09:00 Acetaminophen 650 mg 650 mg Q6H PRN PO PAIN AND OR ELEVATED TEMP; Start at 02:30 Dextrose/Sodium Chloride (D5-1/2ns) 1,000 ml @ 75 mls/hr [id number] IV Last administered on 07/21/16 09:10; Admin Dose 75 MLS/HR; Start 07/19/16 at 10:30 ISABELLE GOMEZ MD Jul 21, 2016 12:48
--- NOTE | 2016-07-21 23:53 | PN ---
Date/Time of Note Date/Time of Note DATE: 07/21/16 TIME: 23:52 Assessment/Plan Lines/Catheters IV Catheter Type (from [facility]): Peripheral IV Assessment/Plan Chief Complaint/Hosp Course 1. Abdominal pain with leukocytosis and CT diagnosis of appendicitis with phlegmon. Improving -Diet as tolerated -IV fluids -IV antibiotics -D/C planning -No surgical intervention at this time. Plan is to continue antibiotics and discharged patient to follow-up as outpatient for elective laparoscopic appendectomy in 2-4 months 2. Anemia without evidence of acute bleeding -Will need eventual GI workup 3. Smoker, pack per day -Highly encouraged to reduce or stop smoking to improve his overall health status Thank you, Problems: Subjective 24 Hr Interval Summary Flatus and BM. No f/c/n/v. No pain. Flatus. No giles/dizziness/visual or neuro changes. No dysuria. No bloating. Exam/Review of Systems Vital Signs Vitals Vital Signs Date Time Temp Pulse Resp B/P Pulse Ox O2 Delivery O2 Flow Rate FiO2 07/21/16 07:45 98.4 48 20 117/67 100 07/19/16 20:00 Room Air Intake and Output 07/20/16 07/20/16 07/21/16 14:59 22:59 06:59 Intake Total 100 ml 3030 ml 1150 ml Balance 100 ml 3030 ml 1150 ml Exam Free Text/Dictation Constitutional: alert, oriented, No distress Psych: nl mood/affect, No anxiety Head: atraumatic, normocephalic Eyes: EOMI, PERRL, nl conjunctiva, No icteric ENMT: mucosa pink and moist, nl external ears & nose, nl lips & teeth Neck: non-tender, supple, No jvd Respiratory: normal air movement, No congested cough, No labored breathing Cardiovascular: regular rate and rhythm, No edema Gastrointestinal: soft, NT, No distended, No rebound or guarding Genitourinary - Male: nl penis, nl scrotum Musculoskeletal: nl extremities to inspection, nl gait and stance, No joint tenderness Extremities: normal pulses, No calf tenderness, No cyanosis Neurological: nl mental status, nl speech, nl strength Skin: nl turgor, No diaphoresis, No rash or lesions Lymph: nl lymph nodes Results Result Diagram: 07/20/1651807/20/16519 BRUCE JUDGE MD Jul 21, 2016 23:53
[2016-07-22] MEDS: DEXTROSE 5%-0.45% NACL 1,000 ML IV SCH (00:29)
[2016-07-22] MEDS: PIPER-TAZO 3.375 GM IV (PMX) 100 ML IVPB SCH ×2 (05:58→14:00)
[2016-07-22 07:21] VITALS: BP 130/67; RESP 16
[2016-07-22] MEDS: FAMOTIDINE 20 MG TAB PO SCH (08:49)
[2016-07-22] MEDS: DOCUSATE SODIUM 100 MG CAP PO SCH (08:49)
--- NOTE | 2016-07-22 13:30 | PDOCDIS ---
Discharge Instructions CONDITION Patient Condition: Good HOME CARE INSTRUCTIONS: Diet Instructions: Regular ACTIVITY: Activity Restrictions: Slowly Increase Activity Rest between Activity Avoid heavy lifting FOLLOW UP/APPOINTMENTS Appointments Follow up with surgeon in 4-6 weeks SARKIS DO MD Jul 22, 2016 13:30
[2016-07-22] MEDS ORDERED: HYDR-906 PO (13:32)
[2016-07-22] MEDS ORDERED: FAMO20TA18 PO (13:32)
[2016-07-22] MEDS ORDERED: METR500T PO (13:32)
[2016-07-22] MEDS ORDERED: CIPR500T4 PO (13:32)
--- NOTE | 2016-07-22 17:27 | DS ---
DATE OF ADMISSION: 07/18/2016 DATE OF DISCHARGE: 07/22/2016 CONSULTANTS: Dr. Finn Ramachandran. PROCEDURES: None. IMAGING: CT of the abdomen and pelvis which showed phlegmonous changes with stranding increased sof t tissue inferior to the cecum suspicion for perforated appendicitis, mild vascular calcification re flective of atherosclerosis. DISCHARGE DIAGNOSES: 1. Appendicitis, acute, general surgery was consulted. The patient at this time was placed on IV a ntibiotics and he has been cleared by surgery to be discharged on oral antibiotic to follow up for outpatient surgical intervention. 2. History of tobacco use disorder, consulted for cessation. MEDICATIONS: 1. Ciprofloxacin 500 mg b.i.d. 2. Pepcid 20 mg q. daily. 3. [place] 5/325 q .6 h. 4. Flagyl 500 mg p.o. t.i.d. 5. Tylenol 500 mg p.o. q. 6 h. ALLERGIES: NO KNOWN DRUG ALLERGIES. HOSPITAL COURSE: This is a pleasant 50-year-old gentleman with past medical history of smoking who presented to [facility] secondary to having right lower quadrant abdominal pain wh ich was sharp, radiating to his back and suprapubic area with nausea without any vomiting. No fever , chills, or any other discomfort. CT abdomen and pelvis was obtained which showed perforated appen dicitis. WBC was found to be 11.1. Patient was placed on Zosyn, IV fluid, n.p.o., pain medication and general surgery was consulted. Patient was continued on aggressive IV antibiotics and his WBC h as normalized. He has been afebrile. At this time, the patient is afebrile. Denies any abdominal pain, has been started on clear liquid diet and has been advanced to full liquid diet at this time a s per surgery recommendations. At this time, the patient needs to be continued on antibiotics and f ollow up with general surgery as outpatient for elective laparoscopic versus open appendectomy in . The patient will need to follow up with general surgeon in 4 to 6 weeks for further evalu ation. In case of patient having abdominal pain, nausea, vomiting and fever, the patient needs to r eturn to emergency room immediately. DIET: Regular diet. ACTIVITY: Light activity. Labs today WBC 6.3, hemoglobin 11.5, hematocrit 34.3, platelets of 315. Sodium 142, potassium 4.2, chloride 103, bicarbonate 29, BUN 7, creatinine 0.82, glucose 92, calciu m 9.0. DISPOSITION: Home. CONDITION: Stable. Dictated By: SARKIS DO MD PN/NTS Conf#: [id number] DID#: [id number]
--- NOTE | 2016-07-22 21:06 | PN ---
Date/Time of Note Date/Time of Note DATE: 07/22/16 TIME: 21:04 Assessment/Plan Lines/Catheters IV Catheter Type (from [facility]): Peripheral IV Assessment/Plan Chief Complaint/Hosp Course 1. Abdominal pain with leukocytosis and CT diagnosis of appendicitis with phlegmon. Improved -Diet as tolerated -Antibiotics -D/C planning -No surgical intervention at this time. Plan is to continue antibiotics and discharged patient to follow-up as outpatient for elective laparoscopic appendectomy in 2-4 months 2. Anemia without evidence of acute bleeding -Will need eventual GI workup 3. Smoker, pack per day -Highly encouraged to reduce or stop smoking to improve his overall health status Thank you, Late entry Problems: Subjective 24 Hr Interval Summary Flatus and BM. No f/c/n/v. No pain. Flatus. No giles/dizziness/visual or neuro changes. No dysuria. No bloating. Exam/Review of Systems Vital Signs Vitals Vital Signs Date Time Temp Pulse Resp B/P Pulse Ox O2 Delivery O2 Flow Rate FiO2 07/22/16 07:21 97.9 52 16 130/67 100 07/19/16 20:00 Room Air Intake and Output 07/21/16 07/21/16 07/22/16 15:00 23:00 07:00 Intake Total 1000 ml 1380 ml 820 ml Balance 1000 ml 1380 ml 820 ml Exam Free Text/Dictation Constitutional: alert, oriented, No distress Psych: nl mood/affect, No anxiety Head: atraumatic, normocephalic Eyes: EOMI, PERRL, nl conjunctiva, No icteric ENMT: mucosa pink and moist, nl external ears & nose, nl lips & teeth Neck: non-tender, supple, No jvd Respiratory: normal air movement, No congested cough, No labored breathing Cardiovascular: regular rate and rhythm, No edema Gastrointestinal: soft, NT, No distended, No rebound or guarding Genitourinary - Male: nl penis, nl scrotum Musculoskeletal: nl extremities to inspection, nl gait and stance, No joint tenderness Extremities: normal pulses, No calf tenderness, No cyanosis Neurological: nl mental status, nl speech, nl strength Skin: nl turgor, No diaphoresis, No rash or lesions Lymph: nl lymph nodes Results Result Diagram: 07/20/16 0519 07/20/16519 BRUCE JUDGE MD Jul 22, 2016 21:06
== END 2016-07-22 15:00 | disposition home or self-care (01) | DRG 373 ==
LOC: FTE 20:21 → PP2 07-18 03:40
PROVIDERS: ADMIT Family Medicine; ATTEND Family Medicine
DX: K35.3 Acute appendicitis with localized peritonitis (principal); D64.9 Anemia, unspecified; F17.210 Nicotine dependence, cigarettes, uncomplicated
CPT/HCPCS: 36415; 71010; 74176; 80048; 80053; 81003; 83690; 83735; 85025; 85610; 85730; 90686; 96365; 96375; J2270; J2405; J2543; J7030